=== PATIENT | female | born 1985 ===

== ENCOUNTER 2018-02-19 11:17 | Inpatient (IN) | payer OTHER ==
[~2018-02-19] VITALS: Ht 165.1 cm; Wt 169.0 kg
[2018-02-19] MEDS ORDERED: PRENATABS RX T1 EACH PO (11:38)
== END 2018-02-21 14:15 | disposition home or self-care (01) | DRG 807 ==
LOC: OB/GYN 11:17 → LDR 11:17 → OB/GYN 16:15
PROC: 10E0XZZ Delivery of Products of Conception, External Approach (ICD-10-PCS; principal; 2018-02-19)
PROC: 0KQM0ZZ Repair Perineum Muscle, Open Approach (ICD-10-PCS; 2018-02-19)
PROC: 4A1HXCZ Monitoring of Products of Conception, Cardiac Rate, External Approach (ICD-10-PCS; 2018-02-19)
PROC: 4A033R1 Measurement of Arterial Saturation, Peripheral, Percutaneous Approach (ICD-10-PCS; 2018-02-19)
DX: O70.1 Second degree perineal laceration during delivery (principal); Z37.0 Single live birth; Z3A.39 39 weeks gestation of pregnancy